=== PATIENT | female | born 1940 | race Caucasian/White ===

== ENCOUNTER 2016-09-07 15:04 | Emergency (ER) | payer BC, MEDICARE, OTHER ==
--- NOTE | 2016-09-07 19:16 | RAD ---
HISTORY: Chest pain and shortness of breath COMPARISONS: January 24, 2016 VIEWS: 2: Frontal dual-energy and lateral views of the chest. FINDINGS: CARDIOMEDIASTINAL SILHOUETTE: The cardiomediastinal silhouette is normal. RONALD: The ronald are normal. PLEURA: The costophrenic angles are sharp. No pleural abnormalities are noted. LUNG PARENCHYMA: The lungs are clear. ABDOMEN: The upper abdomen is clear. There is no subphrenic gas. BONES AND SOFT TISSUES: No bone or soft tissue abnormalities are noted. OTHER: None. IMPRESSION: NO ACTIVE CARDIOPULMONARY DISEASE.
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
[2016-09-07 20:14] VITALS: BP 134/73
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
== END 2016-09-07 20:05 | disposition home or self-care (01) ==
LOC: ED 15:04
DX: R07.89 Other chest pain (principal); R06.02 Shortness of breath; R05 Cough; M54.9 Dorsalgia, unspecified; R51 Headache
CPT/HCPCS: 71020; 99283

== ENCOUNTER 2018-03-11 11:36 | Emergency (ER) | payer MEDICARE, BC ==
[2018-03-11 11:58] VITALS: BP 156/83
--- NOTE | 2018-03-11 12:41 | UC ---
Skin Complaint HPI - HPI Summary HPI Summary: 77 y/o female with no PMH, no medication presents with redness under her L breast since this summer, roughly august. treated with lotions, anti-bacterial ointment, n improvement. + sore, no spread from skin folds. - History of Current Complaint Chief Complaint: UCSkin Time Seen by Provider: 03/11/18 12:12 Stated Complaint: L BREAST PAIN Hx Obtained From: Patient ?: No Onset/Duration: Lasting Weeks, Still Present Skin Exposure Onset/Duration: Weeks Ago Onset Severity: Mild Current Severity: Mild Pain Intensity: 0 Pain Scale Used: 0-10 Numeric Location: Discrete - under L breast, intermittently in R groin - Allergy/Home Medications Allergies/Adverse Reactions: Allergies Allergy/AdvReac Type Severity Reaction Status Date / Time "travel sickness patch" AdvReac Altered Uncoded 03/11/18 11:58 Mental Status Home Medications: Home Medications Calcium Carbonate/Vitamin D3 [Calcium 600 + Vit D Tablet] 1 each PO DAILY [History Confirmed 03/11/18] Cyanocobalamin TAB* [Vitamin B12 TAB*] 500 mcg PO DAILY 03/11/18 [History Confirmed 03/11/18] Magnesium Oxide [Magnesium] 250 mg PO DAILY 03/11/18 [History Confirmed 03/11/18 ] Multivitamin [Multivitamins] 1 cap PO DAILY 03/11/18 [History Confirmed 03/11/18 ] Vitamin B Complex CAP* [B Complex CAP*] 1 cap PO DAILY 03/11/18 [History Confirmed 03/11/18] Vitamin E 200 unit PO DAILY 03/11/18 [History Confirmed 03/11/18] PMH/Surg Hx/FS Hx/Imm Hx Previously Healthy: Yes - Surgical History Surgical History: Yes Surgery Procedure, Year, and Place: ARTHROSCOPY KNEE 15 YEARS AGO. TUBAL LIGATION. BREAST BX [facility]. RIGHT CATARCT 07/01/14 - Family History Known Family History: Positive: Cardiac Disease, Other - positive FMH of insect bite - Social History Alcohol Use: Occasionally Substance Use Type: None Smoking Status (MU): Never Smoked Tobacco Review of Systems All Other Systems Reviewed And Are Negative: Yes Skin: Positive: Rash - L breast, R groin Is Patient Immunocompromised?: No Physical Exam Triage Information Reviewed: Yes Appearance: Well-Appearing, No Pain Distress, Well-Nourished Vital Signs: Initial Vital Signs Temp 98.5 F 03/11/18 11:54 Pulse 72 03/11/18 11:54 Resp 16 03/11/18 11:54 BP 156/83 03/11/18 11:54 Pulse Ox 96 03/11/18 11:54 Eyes: Positive: Conjunctiva Clear Abdomen Description: Positive: Nontender, No Organomegaly Neurological Exam: Normal Skin: Positive: Rashes, Other - R groin with 2cm pink area with mild satellite lesions in groin crease, non-tender, no drainage noted. L breast- erythematous with small satilite lesions under skin folds, no extension, shiney , no drainage noted. Course/Dx - Course Course Of Treatment: yeast, intrigo, fungal cream given, education - Diagnoses Provider Diagnosis: Intertrigo Discharge - Sign-Out/Discharge Documenting (check all that apply): Patient Departure All imaging exams completed and their final reports reviewed: No Studies - Discharge Plan Condition: Good Disposition: HOME Prescriptions: Miconazole TOPICAL CREAM 2%* [Monistat 2%*] 1 applic TOPICAL BID #1 tube Patient Education Materials: Skin Yeast Infection (ED) Referrals: Sheila Cruz MD [Primary Care Provider] - Additional Instructions: - Apply cream to under breast, groin, red skin creases twice daily for 7-10 days. - keep area as dry as possible, use tissues, blow dry area after shower. - Billing Disposition and Condition Condition: GOOD Disposition: Home - Attestation Statements Provider Attestation: I was available for consult. This patient was seen by the ANAY. The patient was not presented to, seen by, or examined by me. -Nelida
== END 2018-03-11 12:50 | disposition home or self-care (01) ==
LOC: UCEAST 11:36
DX: L30.4 Erythema intertrigo (principal)
CPT/HCPCS: 99212; G0463